=== PATIENT | female | born 1990 | race Two or more races ===

== ENCOUNTER 2024-01-03 15:29 | Emergency (ER) | payer MEDICAID, OTHER ==
[~2024-01-03] VITALS: Ht 165.1 cm; Wt 104.5 kg
[2024-01-03] MEDS: ACETAMINOPHEN 325 MG TAB PO ONE (17:06)
[2024-01-03 18:34] LABS: Basophils # (auto) 0 10 ^3/uL (0-0.2); Basophils % (auto) 0.4 % (0.0-2.0); Eosinophils # (auto) 0.3 10 ^3/uL (0-0.8); Eosinophils % (auto) 2.8 % (0.0-7.0); Hematocrit 40.9 % (36.0-46.0); Lymphocytes # (auto) 0.7 10 ^3/uL (0.4-5.4); Lymphocytes % (auto) 5.9 % (10.0-50.0); Mean Corpuscular Hemoglobin 29.5 pg (28.0-32.0); Mean Corpuscular Hgb Conc. 34.2 g/dL (32.0-36.0); Mean Corpuscular Volume 86.2 fL (80.0-100.0); Monocytes # (auto) 0.8 10 ^3/uL (0-1.3); Neutrophils # (auto) 9.8 10 ^3/uL (1.6-8.6); Neutrophils % (auto) 83.9 % (37.0-80.0); Platelet Count (auto) 251 10^3/uL (140-450); Red Blood Cells 4.75 10^6/uL (4.0-5.20); Red Cell Distribution Width 13.8 % (11.8-14.3); White Blood Cell 11.7 10^3/uL (4.4-10.8)
[2024-01-03 18:56] LABS: Alanine Aminotransferase 200 U/L (7-40); Albumin 4.6 g/dL (3.2-4.8); Alkaline Phosphatase 189 U/L (46-116); Anion Gap 11 (5-15); Aspartate Aminotransferase 119 U/L (13-40); BUN/Creatinine Ratio 10.3 (10.0-20.0); Blood Urea Nitrogen 9 mg/dL (9-23); Calcium 9.8 mg/dL (8.7-10.4); Carbon Dioxide 19 mmol/L (20-30); Chloride 109 mmol/L (98-107); Glucose 100 mg/dL (74-106); Potassium 3.5 mmol/L (3.5-5.1); Sodium 139 mmol/L (136-145)
[2024-01-03 18:57] LABS: Bilirubin, Total 1.1 mg/dL (0.2-1.0); Total Protein 8.2 g/dL (5.7-8.2)
[2024-01-03 19:32] LABS: COVID19 ANTIGEN SOFIA FIA NEGATIVE (NEGATIVE)
[2024-01-04] MEDS ORDERED: HYDROcodone-ACET 5/325MG TAB PO PRN (01:30)
[2024-01-04] MEDS ORDERED: ACETAMINOPHEN 325 MG TAB PO PRN (01:30)
[2024-01-04] MEDS ORDERED: ONDANSETRON HCL 4 MG/2 ML VIAL IV PRN (01:30)
[2024-01-04 02:05] LABS: Alanine Aminotransferase 174 U/L (7-40); Albumin 4.5 g/dL (3.2-4.8); Alkaline Phosphatase 176 U/L (46-116); Anion Gap 7 (5-15); Aspartate Aminotransferase 81 U/L (13-40); Blood Urea Nitrogen 11 mg/dL (9-23); Calcium 9.7 mg/dL (8.7-10.4); Carbon Dioxide 23 mmol/L (20-30); Chloride 107 mmol/L (98-107); Glucose 110 mg/dL (74-106); Potassium 3.6 mmol/L (3.5-5.1); Sodium 137 mmol/L (136-145)
[2024-01-04 02:06] LABS: Bilirubin, Total 0.9 mg/dL (0.2-1.0); Total Protein 8.1 g/dL (5.7-8.2)
[2024-01-04] MEDS ORDERED: IBUP-1455 PO (03:15)
[2024-01-04] MEDS ORDERED: ONDA-155 PO (03:15)
[2024-01-04] MEDS: SODIUM CHLORIDE 0.9% 1,000 ML IV ONE (03:18)
[2024-01-04] MEDS: KETOROLAC TROMETH 30 MG/ML 1ML VIAL IV ONE (03:21)
[2024-01-04] MEDS: ONDANSETRON HCL 4 MG/2 ML VIAL IV ONE (03:29)
[2024-01-04 03:30] VITALS: BP 115/72; PULSE 87; RESP 19; TEMP 99.1; O2SAT 97
== END 2024-01-04 03:39 | disposition home or self-care (01) ==
LOC: EDBD 15:29 → ER 15:29 → UNDOADMIN 01-04 01:22 → OVERFLOW 01-04 01:22 → UNDODISIN 01-04 03:39
DX: D72.829 Elevated white blood cell count, unspecified (principal); R74.01 Elevation of levels of liver transaminase levels; R51.9 Headache, unspecified; M79.10 Myalgia, unspecified site; R11.2 Nausea with vomiting, unspecified; R50.9 Fever, unspecified; Z20.822 Contact with and (suspected) exposure to COVID-19
CPT/HCPCS: 36415; 76705; 80053; 83605; 85025; 87040; 87426; 96374; 96375; 99285; J1885; J2405; G0378

== ENCOUNTER 2024-12-19 15:58 | Emergency (ER) | payer MEDICAID ==
[~2024-12-19 15:58] MED LIST: IBUP-1455 PO; ONDA-155 PO
[2024-12-19] MEDS: SODIUM CHLORIDE 0.9% 1,000 ML IV ONE (16:45)
[2024-12-19 17:06] LABS: Hematocrit 42.5 % (36.0-46.0); Hemoglobin 14.8 g/dL (12.2-16.2); Mean Corpuscular Hemoglobin 29.5 pg (28.0-32.0); Mean Corpuscular Volume 84.5 fL (80.0-100.0); Nucleated Red Blood Cells % 0.1 %
--- NOTE | 2024-12-19 17:16 | DVH ---
EXAM: US GALLBLADDER CLINICAL HISTORY: Biliary colic TECHNIQUE: Grayscale and limited color flow doppler ultrasound of the right upper quadrant is perfor med. COMPARISON: US GALLBLADDER on DOS: 01/03/24 Findings: Liver measures 18.9 cm in length with increased echotexture and contour. No evidence of focal hepatic lesions or intra- or extrahepatic ductal dilatation. Common bile duct measures 0.4 cm in diameter. N ormal hepatopedal flow noted within the portal vein. No perihepatic free fluid is noted. Gallbladder appears within normal limits with gallbladder wall thickness measuring 0.2 cm. No evidenc e of shadowing calculi, biliary sludge or pericholecystic fluid. Negative sonographic Uriarte's sign. Pancreas not well-visualized due to overlying bowel gas. Right kidney measures 11.7 cm with normal contours, echotexture and cortical thickness. No evidence o f hydronephrosis, calculi, cystic or solid renal lesions. Partially visualized inferior vena cava unremarkable. Impression: 1. No evidence of acute right upper quadrant abnormalities.
[2024-12-19 17:19] LABS: Alanine Aminotransferase 21 U/L (7-40); Albumin 4.6 g/dL (3.2-4.8); Alkaline Phosphatase 88 U/L (46-116); Anion Gap 10 (5-15); BUN/Creatinine Ratio 15.3 (10.0-20.0); Blood Urea Nitrogen 11 mg/dL (9-23); Calcium 9.5 mg/dL (8.7-10.4); Carbon Dioxide 22 mmol/L (20-31); Chloride 104 mmol/L (98-107); Glucose 98 mg/dL (74-106); Lipase 37 U/L (12-53); Magnesium 1.8 mg/dL (1.6-2.6); Potassium 3.9 mmol/L (3.5-5.1); Sodium 136 mmol/L (136-145); Total Protein 7.8 g/dL (5.7-8.2)
[2024-12-19 17:20] LABS: Bilirubin, Total 0.6 mg/dL (0.2-1.0)
--- NOTE | 2024-12-19 17:20 | ED.PDOC ---
GI ASSESSMENT HPI Comments 33y F who presents to the ED for chief complaint of abdominal pain. Pt states she has been having epigastric abdominal radiating to the RUQ for the past 2x days. Pt states her pain is burning in nature, intermittent, with no noted exacerbating or relieving factors. Pt has associated nausea and vomiting but otherwise denies any other symptoms. Pt has noted BP of 168/99 but otherwise noted stable vitals including temp 97.2, 02 sat 99% on room air and rr 20 and heart rate 65. Pt otherwise denies any other symptoms at this time. 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 Social History Smoker: Non-Smoker Alcohol: Denies ETOH Use Drugs: Denies Drug Use Lives In: Home All Other Systems: Reviewed and Negative (see HPI) Physical Exam General Appearance: Mild Distress, Obese HEENT: Normal ENT Inspection, Pharynx Normal, TMs Normal Neck: Full Range of Motion, Non-Tender, Normal, Normal Inspection Respiratory: Chest Non-Tender, Lungs Clear, No Accessory Muscle Use, No Respiratory Distress, Normal Breath Sounds Cardiovascular: No Edema, No JVD, No Murmur, No Gallop, Normal Peripheral Pulses, Regular Rate/Rhythm Breast Exam: Deferred Gastrointestinal: Epigastric, No Organomegaly, No Pulsatile Mass, Normal Bowel Sounds, RUQ, Tenderness Genitalia: Deferred Pelvic: Deferred Rectal: Deferred Extremities: No calf tenderness, Normal capillary refill, Normal inspection, Normal range of motion, Non-tender, No pedal edema Neurologic: Alert, singer and unloader II-XII nml as Tested, Disoriented, No Motor Deficits, Normal Affect, Normal Mood, No Sensory Deficits Cerebellar Function: Normal Reflexes: Normal Skin: Bruises Peripheral Pulses: 1+ carotid (R), 1+ carotid (L) Lymphatic: No Adenopathy Was a procedure done? Was a procedure done?: No GI differential Dx Differential Diagnosis: Appendicitis, Cholecystitis, Gastritis/PUD, Gastroenteritis, Pancreatitis, UTI, Food Poisoning, , Bacterial, Viral, Anemia Other Differential Diagnosis gallstones, biliary colic, heaptic steatosis, X-Ray, Labs, Meds, VS Vital Signs Date Time Temp Pulse Resp B/P (MAP) Pulse Ox O2 Delivery O2 Flow Rate FiO2 12/19/24 15:59 97.2 65 20 168/99 99 97.2 Lab Test 12/19/24 17:00 12/19/24 16:49 Range/Units Urine Color Yellow Yellow Urine Clarity Clear Clear Urine pH 5.5 5.0-9.0 Urine Specific [place] 1.025 1.001-1.035 Urine Protein Trace H Negative Urine Ketones 1+ H Negative Urine Blood 1+ H Negative /uL Urine Nitrite Negative Negative Urine Bilirubin Negative Negative Urine Urobilinogen Normal Negative mg/dL Urine Leukocyte Esterase Negative Negative /uL Urine RBC 3 0 - 4 /hpf Urine Microscopic WBC 3 0-5 /HPF Urine Squamous Epithelial Cells Few <5 /hpf Urine Bacteria None seen None Seen /hpf Urine Mucus Few None Seen Urine Glucose Normal Normal mg/dL White Blood Count 13.4 H 4.4-10.8 10^3/uL Red Blood Count 5.03 4.0-5.20 10^6/uL Hemoglobin 14.8 12.2-16.2 g/dL Hematocrit 42.5 36.0-46.0 % Mean Corpuscular Volume 84.5 80.0-100.0 fL Mean Corpuscular Hemoglobin 29.5 28.0-32.0 pg Mean Corpuscular Hemoglobin Concent 34.9 32.0-36.0 g/dL Red Cell Distribution Width 14.2 11.8-14.3 % Platelet Count 278 140-450 10^3/uL Mean Platelet Volume 9.0 6.9-10.8 fL Neutrophils (%) (Auto) 77.4 37.0-80.0 % Lymphocytes (%) (Auto) 15.6 10.0-50.0 % Monocytes (%) (Auto) 5.3 0.0-12.0 % Eosinophils (%) (Auto) 1.3 0.0-7.0 % Basophils (%) (Auto) 0.4 0.0-2.0 % Neutrophils # (Auto) 10.4 H 1.6-8.6 10 ^3/uL Lymphocytes # (Auto) 2.1 0.4-5.4 10 ^3/uL Monocytes # (Auto) 0.7 0-1.3 10 ^3/uL Eosinophils # (Auto) 0.2 0-0.8 10 ^3/uL Basophils # (Auto) 0.1 0-0.2 10 ^3/uL Nucleated Red Blood Cells 0.1 % Sodium Level 136 136-145 mmol/L Potassium Level 3.9 3.5-5.1 mmol/L Chloride Level 104 98-107 mmol/L Carbon Dioxide Level 22 20-31 mmol/L Anion Gap 10 5-15 Blood Urea Nitrogen 11 9-23 mg/dL Creatinine 0.72 0.550-1.02 mg/dL Glomerular Filtration Rate Calc 112 >90 mL/min BUN/Creatinine Ratio 15.3 10.0-20.0 Serum Glucose 98 74-106 mg/dL Calcium Level 9.5 8.7-10.4 mg/dL Magnesium Level 1.8 1.6-2.6 mg/dL Total Bilirubin 0.6 0.2-1.0 mg/dL Aspartate Amino Transferase (AST) 14 13-40 U/L Alanine Aminotransferase (ALT) 21 7-40 U/L Alkaline Phosphatase 88 46-116 U/L Total Protein 7.8 5.7-8.2 g/dL Albumin 4.6 3.2-4.8 g/dL Lipase 37 12-53 U/L Beta HCG, Quantitative < 0.0 L 1.5-4.2 mIU/mL [place] [address] Ph: [phone] DIAGNOSTIC IMAGING Diagnostic Imaging Report : [id number] Signed PATIENT: CONCEPCION VENCES ACCT: [id number] UNIT: [id number] : 1990 LOC: ER ROOM / BED: / AGE / SEX: 33 / F ADM STATUS: REG ER SERVICE 1643 ORDERING PHYSICIAN: KJ WINN MD PROCEDURE(s): GBUS - GALLBLADDER REASON: Biliary colic ORDER NUMBER(s): [id number], ACCESSION NUMBER(s): [id number] EXAM: US GALLBLADDER CLINICAL HISTORY: Biliary colic TECHNIQUE: Grayscale and limited color flow doppler ultrasound of the right upper quadrant is performed. COMPARISON: US GALLBLADDER on DOS: 01/03/24 Findings: Liver measures 18.9 cm in length with increased echotexture and contour. No evidence of focal hepatic lesions or intra- or extrahepatic ductal dilatation. Common bile duct measures 0.4 cm in diameter. Normal hepatopedal flow noted within the portal vein. No perihepatic free fluid is noted. Gallbladder appears within normal limits with gallbladder wall thickness measuring 0.2 cm. No evidence of shadowing calculi, biliary sludge or pericholecystic fluid. Negative sonographic Uriarte's sign. Pancreas not well-visualized due to overlying bowel gas. Right kidney measures 11.7 cm with normal contours, echotexture and cortical thickness. No evidence of hydronephrosis, calculi, cystic or solid renal lesions. Partially visualized inferior vena cava unremarkable. Impression: 1. No evidence of acute right upper quadrant abnormalities. ATED BY: PAMELA SALAZAR DO DICTATED DATE/TIME: 12/19/241713 SIGNED BY: PAMELA SALAZAR DO SIGNED DATE/TIME: 12/19/241713 CC: Time of 1ST Reevaluation: 18:00 Reevaluation 1ST: Unchanged Time of 2ND Reevaluation: 18:36 Reevaluation 2ND: Improved Consultation: PCP Patient Education/Counseling: Diagnosis, Treatment, Prognosis, Need For Follow Up Family Education/Counseling: Diagnosis, Treatment, Prognosis, Need For Follow Up, No Family Present SEPSIS Sepsis Screen Date sepsis recognized/suspect: Dec 19, 2024 Time Sepsis recognized/suspect: 1600 Recent Procedure: No On Antibiotic Therapy: No Respiratory Rate >20: No Heart Rate >90: No Temp<36 C (96.8 F) or >38.3 C: No SBP <90 or MAP <65 mmHG: No New Acute Mental Status Change: No Is the patient on CPAP, BIPAP,: No Physician Orders Heplock Iv (12/19/24 16:43) Gallbladder (12/19/24 16:43) Sodium Chloride 0.9% (12/19/24 16:45) Vital Signs Date Time Temp Pulse Resp B/P (MAP) Pulse Ox O2 Delivery O2 Flow Rate FiO2 12/19/24 15:59 97.2 65 20 168/99 99 97.2 Laboratory Tests Test 12/19/24 16:49 White Blood Count 13.4 10^3/uL (4.4-10.8) H Departure 1 Departure Time of Disposition: 18:36 Impression: Primary Impression: Right sided abdominal pain Additional Impression: Fatty liver Ruled Out: Cholecystitis Disposition: HOME / SELF CARE / HOMELESS Condition: Fair Additional Instructions: Push fluids and follow up with your PCP e-Prescriptions Omeprazole (Gnp Omeprazole) 20 Mg Tab 1 TAB PO BID for 10 Days, #20 TAB 1 Refill Prov: KJ WINN MD 12/19/24 Metoclopramide Hcl (Reglan) 10 Mg Tab 10 MG PO TID for 10 Days, #30 TAB Prov: KJ WINN MD 12/19/24 Discharged With: Self Critical Care Note Critical Care Time?: No Stability Stability form required: No Heart Score Heart Score: Heart Score Response (Comments) Value History N/A 0 EKG N/A 0 Age <45 0 Risk Factors No known risk factors 0 Troponin N/A 0 Total 0 I personally scribed for KJ WINN MD ([email or web address]) on 12/19/24 at 17:20. Electronically submitted by tSeve [place] ([email or web address] I personally scribed for KJ WINN MD ([email or web address]) on 12/19/24 at 17:22. Elec tronically submitted by Steve [place] ([facility]). KJ WINN MD Dec 19, 2024 17:20
[2024-12-19 18:00] LABS: Urine Protein, UAD TRACE (Negative)
[2024-12-19] MEDS ORDERED: METO-281 PO (18:39)
[2024-12-19] MEDS ORDERED: OMEP20TA PO (18:39)
[2024-12-19 19:12] VITALS: BP 118/67; PULSE 76; RESP 20; TEMP 98; O2SAT 98
== END 2024-12-19 19:19 | disposition home or self-care (01) ==
LOC: ER 16:01
DX: R10.11 Right upper quadrant pain (principal); K76.0 Fatty (change of) liver, not elsewhere classified; Z79.899 Other long term (current) drug therapy
CPT/HCPCS: 36415; 76705; 80053; 81001; 83690; 83735; 84702; 85025